=== PATIENT | male | born 1990 | race Asian ===

== ENCOUNTER 2016-06-14 19:04 | Emergency (ER) | payer BC ==
[2016-06-14] MEDS ORDERED: Lidocaine 1% 30 ML SDV INJECT ONE (19:08)
[2016-06-14 19:16] VITALS: BP 149/102
--- NOTE | 2016-06-14 19:59 | EDM.PDOC ---
ED HPI Skin/Rash - General Chief Complaint: Laceration Stated Complaint: CUT HIS HAND BLEADING [id number] Time Seen by Provider: 06/14/16 19:10 Source: Reports: Patient History Limitations: Reports: No limitations - History of Present Illness INITIAL COMMENTS - FREE TEXT/NARRATIVE: cut left thumb while opening large can of olives. Location, Skin: Reports: upper extremity, left - Related Data Allergies Allergy/AdvReac Type Severity Reaction Status Date / Time cefaclor [From Ceclor] Allergy Cannot Verified 06/14/16 19:13 Remember Home Meds: Ambulatory Orders Medication Instructions Recorded Confirmed . [No Known Home Meds] 06/14/16 06/14/16 Past Medical History - Past Health History Medical/Surgical History: Denies Medical/Surgical History - Infectious Disease History Infectious Disease History: Reports: Hepatitis C - Past Surgical History HEENT Surgical History: Reports: Oral surgery Social & Family History - Family History Family Medical History: Noncontributory - Tobacco Use Smoking Status *Q: Current Every Day Smoker Years of Tobacco use: 10 Packs/Tins Daily: 0.5 - Caffeine Use Caffeine Use: Reports: Coffee - Recreational Drug Use Recreational Drug Use: No ED ROS GENERAL - Review of Systems Review Of Systems: See Below Skin: Reports: wound ( laceration left inner thumb, no change in sensation) ED EXAM, SKIN/RASH Exam: See Below Exam Limited By: No limitations General Appearance: alert, no apparent distress Respiratory/Chest: no respiratory distress Cardiovascular: normal peripheral pulses Neurological: alert, oriented Skin: Warm, Wound/incision (2cm laceration mid inner thumb active bleeding , controlled with pressure) ED SKIN PROCEDURES - Laceration/Wound Repair Left Middle Dorsal Other Lac/wound length in cm: 2 (thumb) Appearance: subcutaneous, linear Distal NVT: neuro & vascular intact, no tendon injury Anesthetic type: local Local anesthesia - Lidocaine (Xylocaine): 1% plain Local anesthetic volume: 2cc Skin prep: chlorhexidine (hibiciens), saline Exploration/Debridement/Repair: wound explored Closed with: sutures Suture size: 4-0 Suture type: nylon, interrupted Suture size: 4-0 # of sutures: 2 Repaired with: vicryl Drain placement: No Sterile dressing applied: nurse Tetanus status addressed: Yes Complications: No Course - Vital Signs Last Recorded V/S: Last Vital Signs Temp 98.2 F 06/14/16 19:14 Pulse 88 06/14/16 19:14 Resp 16 06/14/16 19:14 BP 149/102 H 06/14/16 19:14 Pulse Ox 99 06/14/16 19:14 - Orders/Labs/Meds Meds: Medications Discontinued Medications Generic Name Dose Route Start Last Admin Trade Name Hammad PRN Reason Stop Dose Admin Lidocaine HCl 30 ml 06/14/16 19:08 06/14/16 19:27 Xylocaine-Mpf 1% INJECT 06/14/16 19:09 30 ml ONETIME ONE Administration Departure - Departure Time of Disposition: 19:56 Disposition: Home, Self-Care 01 Condition: good Clinical Impression: Broken skin Instructions: Stitches, [place], or Adhesive Wound Closure, Requ-ll-Samp Forms: ED Department Discharge Additional Instructions: stiches out in 10 days keep dry and covered 24 hours then may remove dressing, bandaide dressing change and wash at least twice daily with antibiotic soap keep covered while at work until healed. follow up if any redness swelling or discharge tylenol or ibuprofen for discomfort
== END 2016-06-14 20:00 | disposition home or self-care (01) ==
LOC: DL.ED 19:04
DX: S61.012A Laceration without foreign body of left thumb without damage to nail, initial encounter (principal); F17.210 Nicotine dependence, cigarettes, uncomplicated; Z88.8 Allergy status to other drugs, medicaments and biological substances; W27.4XXA Contact with kitchen utensil, initial encounter
CPT/HCPCS: 12001; 99283

== ENCOUNTER 2017-05-02 06:15 | Emergency (ER) | payer BC ==
[2017-05-02 06:21] VITALS: BP 133/90
--- NOTE | 2017-05-02 06:35 | EDM.PDOC ---
ED HPI GENERAL MEDICAL PROBLEM - General Chief Complaint: Lower Extremity Injury/Pain Stated Complaint: CAUGHT FOOT ON ROCK [id number] Time Seen by Provider: 05/02/17 06:30 Source of Information: Reports: Patient History Limitations: Reports: No Limitations - History of Present Illness INITIAL COMMENTS - FREE TEXT/NARRATIVE: C/O pain to left foot. States letting dog out last denilson and jumped off step and landed on rock twisted foot and felt popping. Denies pain in ankle just in forefoot. Was able to walkon it last denilson but not this am. Left Feet Pain Score (Numeric/FACES): 5 - Related Data Allergies Allergy/AdvReac Type Severity Reaction Status Date / Time cefaclor [From Ceclor] Allergy Cannot Verified 05/02/17 06:21 Remember Home Meds: Home Meds . [No Known Home Meds] 06/14/16 [History] Past Medical History - Past Health History Medical/Surgical History: Denies Medical/Surgical History - Infectious Disease History Infectious Disease History: Reports: Hepatitis C - Past Surgical History HEENT Surgical History: Reports: Oral Surgery Social & Family History - Family History Family Medical History: Noncontributory - Tobacco Use Smoking Status *Q: Former Smoker Years of Tobacco use: 10 Packs/Tins Daily: 0.5 Used Tobacco, but Quit: Yes Month Tobacco Last Used: oct 2016 - Caffeine Use Caffeine Use: Reports: Coffee - Recreational Drug Use Recreational Drug Use: No Review of Systems - Review of Systems Review Of Systems: ROS reveals no pertinent complaints other than HPI. ED EXAM, GENERAL - Physical Exam Exam: See Below Exam Limited By: No Limitations General Appearance: Alert, Mild Distress Ears: Normal External Exam Throat/Mouth: Normal Voice Respiratory/Chest: No Respiratory Distress Cardiovascular: Normal Peripheral Pulses Extremities: Other (swelling left lateral foot, tender to plapation and movement ) Neurological: Alert, Oriented, Normal Cognition Psychiatric: Normal Affect, Normal Mood Skin Exam: Warm, Dry, Intact, Ecchymosis (left lateral fid foot) Course - Vital Signs Last Recorded V/S: Last Vital Signs Temp 98.1 F 05/02/17 06:17 Pulse 91 05/02/17 06:17 Resp 17 05/02/17 06:17 BP 133/90 05/02/17 06:17 Pulse Ox 95 05/02/17 06:17 - Orders/Labs/Meds Orders: Active Orders 24 hr Category Date Time Status Foot Comp Min 3V Lt [CR] Urgent Exams 05/02/17 06:25 Taken Departure - Departure Time of Disposition: 06:53 Disposition: Home, Self-Care 01 Condition: Good Clinical Impression: Metatarsal boss of left foot - Discharge Information Instructions: Metatarsal Fracture Forms: ED Department Discharge Additional Instructions: alternate tylenol and ibuprofen for discomfort, may alternate every 4 hours rest, ice, elevation cam boot crutches partial weight bearing follow up in clinic this week - My Orders Last 24 Hours: My Active Orders 05/02/17 06:25 Foot Comp Min 3V Lt [CR] Urgent - Assessment/Plan Last 24 Hours: My Active Orders 05/02/17 06:25 Foot Comp Min 3V Lt [CR] Urgent
== END 2017-05-02 07:03 | disposition home or self-care (01) ==
LOC: DL.ED 06:15
DX: S90.32XA Contusion of left foot, initial encounter (principal); M77.52 Other enthesopathy of left foot and ankle; Z87.891 Personal history of nicotine dependence; Z88.1 Allergy status to other antibiotic agents; X50.1XXA Overexertion from prolonged static or awkward postures, initial encounter; Y93.K9 Activity, other involving animal care
CPT/HCPCS: 73630-LT; 99283

== ENCOUNTER 2023-07-06 08:15 | Emergency (ER) | payer OTHER, BC ==
[2023-07-06 09:03] VITALS: BP 172/112; PULSE 127
[2023-07-06 09:04] LABS: BASOPHILS PERCENT AUTO 0.6 % (0.0-1.0); EOSINOPHILS PERCENT AUTO 2.7 % (1.0-3.0); HEMATOCRIT 47.9 % (40.0-54.0); HEMOGLOBIN 15.8 g/dL (14.0-18.0); LYMPHOCYTES PERCENT AUTO 29.3 % (20.5-50.1); MEAN CORPUSCULAR VOLUME 90.9 fL (80-100); MONOCYTES PERCENT AUTO 8.3 % (2-8); NEUTROPHILS PERCENT AUTO 59.1 % (42.2-75.2); PLATELET COUNT,PLT 268 10^3/uL (150-450); RED BLOOD CELL COUNT 5.27 10^6/uL (4.6-6.2); WHITE BLOOD CELL COUNT,WBC 5.2 10^3/uL (5.0-10.0)
[2023-07-06] MEDS: Lactated Ringers 1,000 ML IV ONE (09:23)
[2023-07-06 09:27] LABS: A/G RATIO 0.9; ALBUMIN 4.5 g/dL (3.4-5.0); ANION GAP 16.9 mEq/L (7-13); BILIRUBIN TOTAL 0.3 mg/dL (0.2-1.0); CALCIUM 8.4 mg/dL (8.5-10.1); CREATININE 1.14 mg/dL (0.70-1.30); EST CRCL DRUG DOSING (CG) 100.21 mL/min; POTASSIUM,K 3.9 mmol/L (3.5-5.1); PROTEIN TOTAL,TP 9.3 g/dL (6.4-8.2)
[2023-07-08 20:41] LABS: HAV AB IGM Negative (Negative); HBC IGM Negative (Negative); HEP B SURG AG Negative (Negative); HEP C AB BY CIA Low Pos (Negative)
== END 2023-07-06 09:56 | disposition home or self-care (01) ==
LOC: DL.ED 08:15
DX: S00.81XA Abrasion of other part of head, initial encounter (principal); Z88.1 Allergy status to other antibiotic agents; V48.5XXA Car driver injured in noncollision transport accident in traffic accident, initial encounter; Y93.89 Activity, other specified
CPT/HCPCS: 36415; 70450; 72125; 80053; 80074; 80307; 85025; 99283; 99284; J7120